=== PATIENT | male | born 1960 | race Caucasian/White ===

== ENCOUNTER → 2020-12-11 | Outpatient (CLI) | payer BC | LOC: SJCVCIMAG 08:52 | PROVIDERS: ATTEND Internal Medicine | DX: R00.2 Palpitations (principal); I48.0 Paroxysmal atrial fibrillation; E78.5 Hyperlipidemia, unspecified ==

== ENCOUNTER → 2021-01-18 | Outpatient (CLI) | payer BC ==
[2021-01-18 09:47] LABS: ABSOLUTE NEUTROPHILS 4.7 thou/uL (1.4-8.2); BASOPHILS 1.1 % (0.0-2.0); EOSINOPHILS 6.2 % (0.0-3.0); HEMATOCRIT 44.4 % (42.0-52.0); HEMOGLOBIN 15.1 gm/dL (14.0-18.0); LYMPHOCYTES 15.7 % (24.0-44.0); MCH 33.6 pg (26.0-34.0); MCV 98.7 fL (80.0-100.0); MONOCYTES 7.9 % (1.0-8.0); PLATELET COUNT 285 thou/uL (150-400); POLYS 69.1 % (36.0-66.0); RDW 13.5 % (10.5-14.5); WBC 6.8 thou/uL (4.0-11.0)
[2021-01-18 10:07] LABS: ALBUMIN 3.9 g/dL (3.4-5.0); CREATININE 1.1 mg/dL (0.7-1.3); POTASSIUM 4.3 mmol/L (3.5-5.1); TOTAL BILIRUBIN 1.1 mg/dL (0.2-1.0); TOTAL PROTEIN 7.6 g/dL (6.4-8.2)
== END ==
LOC: CAT 09:16
PROVIDERS: ATTEND Internal Medicine Cardiovascular Disease
DX: Z01.818 Encounter for other preprocedural examination (principal); I48.91 Unspecified atrial fibrillation

== ENCOUNTER → 2021-01-22 | Outpatient (CLI) | payer BC, OTHER ==
[~2021-01-22] VITALS: Ht 177.8 cm; Wt 69.9 kg
[~2021-01-22] MED LIST: ANDROGEL5 GM TOP; CIALIS5 MG PO; ELIQUIS5 MG PO; FLONASE 0.05%50 MCG NARES; MULTAQ 400 MG400 MG PO; UNICOMPLEX M TA1 TA1 PO; VITAMIN D3125 MC1 PO
--- NOTE | ~2021-01-22 | P ---
[facility] [place] [address] PROCEDURE REPORT Name: MADINA HATHAWAY Room #: REG [facility]#: [id number] Admission: 01/22/21 Attend Phys: Jono Castillo MD Discharge: Date of : 58 Report #: [id number] THIS REPORT FOR: cc: Rock Hart,Jono Vail MD ~ DOC #: [id number] Jono Castillo MD DATE OF SERVICE: 01/22/2021 PREOPERATIVE DIAGNOSIS: Atrial fibrillation. POSTOPERATIVE DIAGNOSIS: Atrial fibrillation. PROCEDURE PERFORMED: 1. Atrial fibrillation ablation, CPT code 08937. 2. Program stimulation and pacing after IV infusion, CPT code 87256. 3. 3D mapping, CPT code 72141. 4. Intracardiac echo, CPT code 17469. HISTORY: The patient is a 60-year-old male with history of paroxysmal AFib, here for ablation. ANESTHESIA: The patient underwent general anesthesia with no anesthesia related complications. DESCRIPTION OF PROCEDURE: The patient underwent informed consent where we discussed the details of the procedure including the risks, which include but not limited to bleeding, AL, stroke, cardiac perforation, and damage to [place] conduction system requiring permanent pacemaker. He understood these risks and is willing to proceed. The patient was brought to the EP laboratory in a fasting and nonsedated state, prepped and draped in a standard fashion. I injected lidocaine at the right groin and obtained access in the right femoral vein x3. I placed a 8, 9, and 7-Yakut short sheath using the modified Seldinger technique. Next, under fluoroscopy, decapolar catheter was placed easily in the coronary sinus for left atrial pacing and recording. An ICE catheter was placed in the right atrium. At baseline, the patient was in sinus rhythm. Using intracardiac ultrasound, the patient had two left and two right pulmonary veins. It almost appeared that he had a left common ostium and a right common ostium. This was merged with his cardiac CT scan, which also appeared as if he had to common ostium as well. The patient was systemically heparinized and a transseptal was performed using an SL1 sheath and a Sandy needle. This was straightforward and exchanged for the Cryo sheath and placed the Lasso catheter into the left atrium. Next, a 3D [facility] [address] [place] [address] PROCEDURE REPORT Name: MADINA HATHAWAY Room #: REG [facility]#: [id number] Admission: 01/22/21 Attend Phys: Jono Castillo MD Discharge: Date of : 58 Report #: [id number] voltage map and 3D geometry of the left atrium was created with the Lasso catheter and the left and right pulmonary veins were all in close proximity to each other based on our 3D mapping. Next, the cryoballoon was placed into the left superior pulmonary vein. The left superior pulmonary vein underwent a 4-minute freeze followed by a 300-second freeze and isolated at 120 seconds during the second freeze. The left inferior pulmonary vein underwent a 3-minute freeze isolating at 19 seconds. The right superior pulmonary vein underwent two 3-minute freezes and the vein isolated at 28 seconds during the second freeze. The right inferior pulmonary vein underwent a 3-minute freeze isolating at 55 seconds. Of note, both right-sided veins appeared to be very close proximity to one another as if it was a common ostium more so than on the left. I took the cryoballoon out and placed a Lasso catheter back in the left atrium and all 4 pulmonary veins appeared to be isolated and there was a very small amount of electrical activity along the posterior wall noted. Next, the Cryo sheath was pulled to the right atrium and a basic EP study was performed. Of note, while isolating the veins, esophageal temperatures were within normal limits and right-sided veins did not result in any phrenic nerve issues. Next, a basic EP study was performed. At baseline, AV block was noted at 200 milliseconds. Atrial ERP was noted at 210 milliseconds at [address] cycle length. Atrial burst pacing down to 250 milliseconds did not result in any atrial fibrillation or atrial flutter. Next, isoproterenol infusion was increased to 2 mcg per minute and AV block was noted at 280 milliseconds. Atrial ERP was noted at 200 milliseconds at a [address] cycle length. Isoproterenol was then increased to 4 mcg per minute and AV block was noted at 260 milliseconds. Atrial ERP was noted at 200 milliseconds at a [address] cycle length. He did have some right ventricular outflow tract PVCs noted on the higher dose of Isuprel. Aggressive atrial pacing maneuvers were performed and we could not induce any atrial flutter or any SVT. As such, isoproterenol was discontinued and the patient was in sinus rhythm with a sinus cycle length of 633 milliseconds, PA interval 135 milliseconds, QRS duration 90 milliseconds, QT interval 420 milliseconds. As such, the procedure was concluded. The patient received systemic protamine. Intracardiac ultrasound was performed and there was no pericardial effusion. After the ACT was within acceptable range, catheters and sheaths were pulled. Hemostasis was obtained. The patient awoke neurologically and hemodynamically intact. No complications and no significant bleeding. CONCLUSIONS: 1. Successful AFib ablation with isolation of the pulmonary veins. 2. Normal EP study with no inducible arrhythmias on or off isoproterenol. Jono Castillo MD [facility] [address] [place] [address] PROCEDURE REPORT Name: MADINA HATHAWAY [id number] Admission: 01/22/21 Attend Phys: Jono Castillo MD Discharge: Date of : 58 Report #: [id number] By: 1031 2255 Jono Castillo MD /
[2021-01-22 07:12] VITALS: BP 123/75
[2021-01-22 07:32] LABS: ABSOLUTE NEUTROPHILS 3.4 thou/uL (1.4-8.2); BASOPHILS 1.2 % (0.0-2.0); EOSINOPHILS 10.4 % (0.0-3.0); HEMATOCRIT 45.3 % (42.0-52.0); HEMOGLOBIN 15.3 gm/dL (14.0-18.0); LYMPHOCYTES 25.3 % (24.0-44.0); MCH 33.1 pg (26.0-34.0); MCHC 33.7 g/dL (28.0-37.0); MCV 98.2 fL (80.0-100.0); MONOCYTES 9.8 % (1.0-8.0); PLATELET COUNT 294 thou/uL (150-400); POLYS 53.3 % (36.0-66.0); RBC 4.61 mil/uL (4.50-6.00); RDW 13.5 % (10.5-14.5); WBC 6.4 thou/uL (4.0-11.0)
[2021-01-22 07:41] LABS: POTASSIUM 4.2 mmol/L (3.5-5.1)
[2021-01-22 07:47] LABS: ALBUMIN 3.7 g/dL (3.4-5.0); TOTAL BILIRUBIN 0.9 mg/dL (0.2-1.0); TOTAL PROTEIN 7.3 g/dL (6.4-8.2)
[2021-01-22 07:58] LABS: APTT 23.7 Seconds (24.5-32.8); PROTIME 10.3 Seconds (9.3-11.4)
--- NOTE | 2021-01-22 13:35 | NUR ---
PT BLADDER DISTENDED AND REPORTING ABD PAIN. PT ALSO REPORTS URGE TO URINATE WITHOUT THE ABILITY. STRAIGHT CATHED FOR 900CC URINE. NO DISTRESS NOTED
== END | disposition home or self-care (01) ==
LOC: CATH 06:17
PROVIDERS: ATTEND Internal Medicine Cardiovascular Disease
DX: I48.91 Unspecified atrial fibrillation (principal); R00.2 Palpitations; I49.9 Cardiac arrhythmia, unspecified; Z98.890 Other specified postprocedural states; Z79.899 Other long term (current) drug therapy; Z79.01 Long term (current) use of anticoagulants; Z20.822 Contact with and (suspected) exposure to COVID-19
CPT/HCPCS: 62110; 62900; 70005

== ENCOUNTER 2021-03-24 12:24 | Emergency (ER) | payer BC, OTHER ==
[~2021-03-24] VITALS: Ht 177.8 cm; Wt 70.3 kg
[2021-03-24 12:54] LABS: ABSOLUTE NEUTROPHILS 6.8 thou/uL (1.4-8.2); BASOPHILS 0.9 % (0.0-2.0); EOSINOPHILS 4.7 % (0.0-3.0); HEMATOCRIT 43.7 % (42.0-52.0); LYMPHOCYTES 21.5 % (24.0-44.0); MCH 33.4 pg (26.0-34.0); MCHC 34.4 g/dL (28.0-37.0); MONOCYTES 6.7 % (1.0-8.0); POLYS 66.2 % (36.0-66.0); RDW 13.9 % (10.5-14.5); WBC 10.2 thou/uL (4.0-11.0)
[2021-03-24 14:23] LABS: ALBUMIN 3.6 g/dL (3.4-5.0); CALCIUM 8.7 mg/dL (8.5-10.1); CREATININE 0.9 mg/dL (0.7-1.3); POTASSIUM 4.1 mmol/L (3.5-5.1); TOTAL BILIRUBIN 0.9 mg/dL (0.2-1.0); TOTAL PROTEIN 6.8 g/dL (6.4-8.2)
[2021-03-24 14:56] LABS: PLATELET COUNT 190 thou/uL (150-400)
--- NOTE | 2021-03-24 16:06 | EKG ---
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
--- NOTE | 2021-03-24 16:06 | EKG ---
[place] [address] [facility] 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1960 Requested By: Shaun Molina Order Number: [id number] MD: Ian Glaser Measurements Intervals [place] Rate: 88 P: 78 DC: 166 QRS: 58 QRSD: 88 T: -6 QT: 360 QTc: 436 Interpretive Statements Sinus rhythm Baseline wander in lead(s) II,III,aVF,V1,V2 Compared to ECG 03/24/2021 12:23:51 Sinus tachycardia no longer present Ventricular premature complex(es) no longer present Electronically Signed On 03-24-2021 16:06:20 CDT by Ian Glaser [email or web address] <ELECTRONICALLY SIGNED> By: Ian Glaser MD, [facility] 03/24/21 1606 1300 1300 Ian Glaser MD, [facility] /EPI
[2021-03-24 16:15] VITALS: BP 111/76
== END 2021-03-24 16:16 | disposition home or self-care (01) ==
LOC: ER 12:24
PROVIDERS: Emergency Medicine
DX: R07.89 Other chest pain (principal); R68.84 Jaw pain; I48.91 Unspecified atrial fibrillation; Z79.899 Other long term (current) drug therapy

== ENCOUNTER → 2021-06-25 | Outpatient (CLI) | payer BC, OTHER | LOC: SJCVCIMAG 15:25 | PROVIDERS: ATTEND Internal Medicine Cardiovascular Disease | DX: I48.91 Unspecified atrial fibrillation (principal) ==

== ENCOUNTER → 2021-07-21 | Outpatient (CLI) | payer OTHER | LOC: CAT 11:08 | PROVIDERS: ATTEND Internal Medicine Cardiovascular Disease | DX: Z13.6 Encounter for screening for cardiovascular disorders (principal); I25.10 Atherosclerotic heart disease of native coronary artery without angina pectoris; E78.00 Pure hypercholesterolemia, unspecified ==

== ENCOUNTER → 2021-08-24 | Outpatient (CLI) | payer BC, OTHER | LOC: SJCVCIMAG 14:21 | PROVIDERS: ATTEND Internal Medicine Cardiovascular Disease | DX: M79.604 Pain in right leg (principal); M79.89 Other specified soft tissue disorders; K21.9 Gastro-esophageal reflux disease without esophagitis; Z72.89 Other problems related to lifestyle; Z82.49 Family history of ischemic heart disease and other diseases of the circulatory system; Z79.82 Long term (current) use of aspirin; Z79.899 Other long term (current) drug therapy ==